=== PATIENT | male | born 1960 | race Caucasian/White ===

== ENCOUNTER 2019-04-23 08:31 | Day surgery (SDC) | payer BC ==
[~2019-04-23 08:31] MED LIST: CEFAZOLIN 1 GM/D5W RTU 1 GM/50 ML RTUPB IV PRN
[2019-04-23] MEDS ORDERED: FENTANYL CITRATE INJ/PF 100 MCG/2 ML AMPUL ONE (10:25)
[2019-04-23] MEDS ORDERED: PROPOFOL INJ 200 MG/20 ML VIAL IV ONE (10:25)
[2019-04-23] MEDS ORDERED: MIDAZOLAM 2 MG/2 ML INJ ONE (10:25)
[2019-04-23] MEDS ORDERED: LIDOCAINE 2% INJ-PF (100 MG/5 ML) SYRINGE ONE (10:26)
[2019-04-23] MEDS ORDERED: LIDOCAINE 2% INJ (20 MG/ML) 20 ML MDV ONE (10:31)
[2019-04-23] MEDS ORDERED: BUPIVACAINE HCL 0.5 % INJ/PF 30 ML SDV ONE (10:31)
[2019-04-23] MEDS ORDERED: LIDOCAINE 2%/EPINEPHRINE INJ 20 ML VIAL ONE (10:39)
[2019-04-23] MEDS: BACITRACIN INJ 50,000 UNIT VIAL ONE ×2 (11:49→12:00)
[2019-04-23] MEDS: POLYMYXIN B SULFATE INJ 500000 UNIT VIAL ONE ×2 (11:50→12:00)
[2019-04-23] MEDS: NORMAL SALINE INJ/PF 0.9% 10 ML SDV ONE ×2 (11:50→12:00)
[2019-04-23] MEDS ORDERED: DEXAMETHASONE SOD PHOS INJ 10 MG/1 ML VIAL ONE (12:11)
[2019-04-23] MEDS: DEXAMETHASONE SOD PHOSPHATE INJ 4 MG/1 ML VIAL ONE ×2 (12:36→12:40)
--- NOTE | 2019-04-23 12:52 | RADIOLOGY REPORT (SQ) ---
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 31 CALCANEAL SPUR, RIGHT FOOT COMPARISON: None. FLUOROSCOPY TIME: 14 seconds Spot images saved to PACS. TECHNIQUE: Intra-operative images acquired during surgical procedure to evaluate progress. NUMBER OF IMAGES: 4 LIMITATIONS: None. FINDINGS: Fluoroscopy was provided for intraoperative procedure. Please refer to the operative repo rt for further discussion. IMPRESSION: IMAGE(S) OBTAINED DURING PROCEDURE. COMMENT: Quality ID 145: Final reports for procedures using fluoroscopy that document radiation exp osure indices, or exposure time and number of fluorographic images (if radiation exposure indices are not available) Please consult full operative report of the attending physician for description of the procedure. TECHNICAL DOCUMENTATION: JOB ID: [id number] [employer]- All Rights Reserved Reading location - IP/workstation name: [email or web address]
--- NOTE | 2019-04-23 12:52 | RADIOLOGY REPORT (SQ) ---
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 31 CALCANEAL SPUR, RIGHT FOOT COMPARISON: None. FLUOROSCOPY TIME: 14 seconds Spot images saved to PACS. TECHNIQUE: Intra-operative images acquired during surgical procedure to evaluate progress. NUMBER OF IMAGES: 4 LIMITATIONS: None. FINDINGS: Fluoroscopy was provided for intraoperative procedure. Please refer to the operative repo rt for further discussion. IMPRESSION: IMAGE(S) OBTAINED DURING PROCEDURE. COMMENT: Quality ID [id number]: Final reports for procedures using fluoroscopy that document radiation exp osure indices, or exposure time and number of fluorographic images (if radiation exposure indices are not available) Please consult full operative report of the attending physician for description of the procedure. TECHNICAL DOCUMENTATION: JOB ID: [id number] [employer]- All Rights Reserved Reading location - IP/workstation name: [email or web address]
--- NOTE | 2019-04-23 13:07 | Operative Report ---
Operative Report DATE OF SURGERY: 04/23/19 PREOPERATIVE DIAGNOSIS: Ramakrishna deformity right foot. POSTOPERATIVE DIAGNOSIS: Same. OPERATION: Excision of hypertrophied bone posterior aspect right heel. SURGEON: ABHISHEK PENA HOOKMAN: NICKIE KAISER ANESTHESIA: LMAC COMPLICATIONS: None. ESTIMATED BLOOD LOSS: Less than 5 mL's. PROCEDURE: On 04/23/2019 patient admitted surgery care with complaints of painful right foot. Patient was taken operating room following induction of his sedation regional anesthesia patient's right foot and leg were prepped and draped in a sterile manner. Attention was directed to the lateral aspect the patient's right heel. An incision was made parallel to the Achilles tendon and just distal to it placed just posterior to the midline between the Achilles tendon and the lateral malleolus. Incision was linear type of approximately 5 cm in length. Incision was deepened through subcutaneous tissue and superficial fascia all bleeding vessel's were clamped, ligated and bovied as necessary for hemostasis. The wound was examined for the sural nerve which was not apparent in the wound. Incision made into the periosteal structures of the lateral aspect the calcaneus which were freed from their osseous attachments and retracted for preservation. The hypertrophied posterolateral aspect of the calcaneus was identified at the time utilizing the osteotome and mallet the hypertrophied bone was removed. Additional bone was removed until it was felt that the hypertrophied bone prominence was reduced adequately. At that time attention was directed to the lateral aspect of the Achilles tendon dissection was carried just posterior to the calcaneus and attempt to remove the posterior most spurring on the calcaneus. It was felt at this time the Achilles tendon was too intertwined within the spurring to be removed without detaching Achilles tendon. Patient was not willing to undergo Achilles tendon tenotomy and reattachment procedure which was discussed preop. At that time all sharp osseous edges were rasped smooth with combination of power rasp and a hand-held nasal rasp. There wound was flushed with copious amounts of sterile antibiotic solution inspected for soft tissue debris with none being found. The calcaneus was palpated for any sharp prominent edges with none being found. It was felt the reduction of the hypertrophied bone was adequate this time and closure of the wound could commence. Deep fascial layers and periosteum was then cut to maintain with simple suture of 3-0 Vicryl. Subtenons tissue superficial fascia was kept maintained with interrupted suture of 4-0 Vicryl. Skin shows a cup to maintain with interrupted horizontal mattress suture of 4-0 nylon. Sterile dressing consisting of a recio silk 4 x 4's, conform, Kerlix and Coban was applied to the patient's right foot and Ortho-Glass splint was then applied secured with Lucio wraps. Patient tolerated procedure and anesthesia well was taken recovery referred by by the anesthesia department.
--- NOTE | 2019-04-23 13:11 | PDOC DISCHARGE SUMMARY ---
Discharge Summary-[facility] Discharge Summary: Patient was admitted to the surgery care on 04/23/2019 with complaint of a painful right heel. Patient was taken operating room where the following procedure was performed: Excision of hypertrophied bone posterior aspect of the right heel. Patient tolerated procedure and surgery well was later discharged from [facility] emergency department with prescriptions for Percocet 04/24/2025, Phenergan 25 mg and cephalexin 500 mg. Patient was instructed to restart his Xarelto tomorrow. Patient is to use crutches to be nonweightbearing on the right foot. Patient is also instructed on rest ice and elevation of the limb and given postop instructions for reference. Patient is given a follow-up appoint for 1 week.
== END 2019-04-23 14:22 | disposition home or self-care (01) ==
LOC: SC 08:31
PROVIDERS: ATTEND Preventive Medicine Undersea and Hyperbaric Medicine
DX: M77.31 Calcaneal spur, right foot (principal); M92.61 Juvenile osteochondrosis of tarsus, right ankle; M89.371 Hypertrophy of bone, right ankle and foot; I10 Essential (primary) hypertension; E03.9 Hypothyroidism, unspecified; D68.2 Hereditary deficiency of other clotting factors; Z86.718 Personal history of other venous thrombosis and embolism; Z79.01 Long term (current) use of anticoagulants
CPT/HCPCS: 73650; 01480; 28119; J2250; J3490 ×6; J0690; J1100; J3010; J2001; J2704